=== PATIENT | female | born 1990 | race Hispanic/Latino ===

== ENCOUNTER 2017-11-26 20:14 | Inpatient (IN) | payer BC ==
[2017-11-26] MEDS ORDERED: Sodium Chloride 0.9% 1,000 ML IV STA (20:48)
[2017-11-26] MEDS ORDERED: Iohexol 240 (50 ml) PO ONE (20:48)
--- NOTE | 2017-11-26 20:51 | ED PDOC ---
HPI: Abdomen Time Seen by Provider: 11/26/17 20:34 Chief Complaint (Nursing): Abdominal Pain Chief Complaint (Provider): abdominal pain History Per: Patient History/Exam Limitations: no limitations Onset/Duration Of Symptoms: Hrs (8) Current Symptoms Are (Timing): Still Present Location Of Pain/Discomfort: Periumbilical, Suprapubic Associated Symptoms: Nausea Exacerbating Factors: Movement Alleviating Factors: Rest, Leaning Forward Additional Complaint(s): 27 y/o female presents for evaluation of abdominal pain x 8 hours. Pain worsened by movement, improved with rest and leaning forward. Associated nausea , 2 episodes of diarrhea. Denies fever, vomiting, chest pain, shortness of breath, palpitations, urinary symptoms, recent travel, sick contacts Patient currently on menses but states not consistent with previous menstrual cramps Past Medical History Reviewed: Historical Data, Nursing Documentation, Vital Signs Vital Signs: Last Vital Signs Temp 98.5 F 11/26/17 20:25 Pulse 82 11/26/17 20:25 Resp 16 11/26/17 20:25 BP 135/93 H 11/26/17 20:25 Pulse Ox 99 11/27/17 01:22 - Medical History PMH: No Chronic Diseases - Surgical History Surgical History: No Surg Hx - Family History Family History: States: No Known Family Hx - Allergies Allergies/Adverse Reactions: Allergies Allergy/AdvReac Type Severity Reaction Status Date / Time Sulfa (Sulfonamide Allergy URTICARIA Verified 11/26/17 20:30 Antibiotics) Review of Systems ROS Statement: Except As Marked, All Systems Reviewed And Found Negative Gastrointestinal: Positive for: Nausea, Abdominal Pain, Diarrhea Physical Exam - Reviewed Nursing Documentation Reviewed: Yes Vital Signs Reviewed: Yes - Physical Exam Appears: Positive for: Well, Non-toxic, No Acute Distress Head Exam: Positive for: ATRAUMATIC, NORMAL INSPECTION, NORMOCEPHALIC Skin: Positive for: Normal Color Eye Exam: Positive for: Normal appearance ENT: Positive for: Normal ENT Inspection Cardiovascular/Chest: Positive for: Regular Rate, Rhythm Respiratory: Positive for: Normal Breath Sounds Gastrointestinal/Abdominal: Positive for: Bowel Sounds, Soft, Tenderness ( periumbilical) Back: Positive for: Normal Inspection Extremity: Positive for: Normal ROM Neurologic/Psych: Positive for: Alert, Oriented (x3) - Laboratory Results Result Diagrams: 11/26/17 21:47 11/26/17 21:47 - ECG O2 Sat by Pulse Oximetry: 99 - Progress ED Course And Treament: labs, urine, CT abd/pelvis, IV fluids, IV toradol EXAM: CT Abdomen and Pelvis With Intravenous Contrast EXAM DATE/TIME: 11/26/2017 8:48 PM CLINICAL HISTORY: 27 years old, female; Pain; Abdominal pain; Periumbilical; Additional info: Periumbilical pain TECHNIQUE: Axial computed tomography images of the abdomen and pelvis with intravenous contrast. All CT scans at this facility use at least one of these dose optimization techniques: automated exposure control; mA and/or kV adjustment per patient size (includes targeted exams where dose is matched to clinical indication); or iterative reconstruction. Coronal and sagittal reformatted images were created and reviewed. CONTRAST: 90 ml of [id number] administered intravenously. COMPARISON: No relevant prior studies available. FINDINGS: Lower thorax: No acute findings. ABDOMEN: Liver: Normal. No mass. Gallbladder and bile ducts: Normal. No calcified stones. No ductal dilation. Pancreas: Normal. No ductal dilation. Spleen: Normal. No splenomegaly. Adrenals: Normal. No mass. Kidneys and ureters: Normal. No hydronephrosis. Stomach and bowel: Normal. No obstruction. No mucosal thickening. Appendix: Distal nonfilling of the appendix with fluid noted in the lumen and mild mucosal enhancement. There is minimal surrounding inflammation appendix measures up to 7 mm PELVIS: Bladder: Unremarkable as visualized. Reproductive: Complex cystic structure in the right ovary measuring up to 3.6 cm ABDOMEN and PELVIS: Intraperitoneal space: Minimal cul-de-sac fluid No free air. No significant fluid collection. Bones/joints: No acute fracture. No dislocation. Soft tissues: Unremarkable. Vasculature: Normal. No abdominal aortic aneurysm. Lymph nodes: Normal. No enlarged lymph nodes. IMPRESSION: Acute appendicitis as described. No gross perforation or abscess Complex cystic structure in the right ovary which may be further characterized with pelvic ultrasound IV zosyn dose ordered Dr. Duffy discussed case with Dr. Wright, HOspitalist on-call, for admission Dr. Duffy discussed case with Dr. Hannah, surgical territory manager on-call for consult Disposition - Clinical Impression Clinical Impression: Acute appendicitis, Right ovarian cyst - Disposition Disposition Time: 01:31 Condition: FAIR
[2017-11-26 21:55] LABS: BASO # 0.1 K/uL (0.0-0.2); BASO % 0.3 % (0.0-2.0); EOS # 0.1 K/uL (0.0-0.7); EOS % 0.4 % (0.0-4.0); HEMOGLOBIN 13.8 g/dL (12.0-16.0); LYMPH # 1.9 K/uL (1.0-4.3); LYMPH % 12.3 % (20.0-40.0); MEAN CELL VOLUME 93.1 fl (81.0-99.0); MEAN CORPUSCULAR HEMOGLOBIN 30.8 pg (27.0-31.0); MEAN CORPUSCULAR HGB CONC 33.1 g/dL (33.0-37.0); MEAN PLATELET VOLUME 8.1 fl (7.2-11.7); MONO # 0.8 K/uL (0.0-0.8); MONO % 5.5 % (0.0-10.0); NEUT # 12.3 K/uL (1.8-7.0); NEUT % 81.5 % (50.0-75.0); RBC 4.48 Mil/uL (3.80-5.20); RED CELL DISTRIBUTION WIDTH 13.6 % (11.5-14.5); WHITE BLOOD COUNT 15.1 K/uL (4.8-10.8)
[2017-11-26] MEDS ORDERED: Iohexol 240 (50 ml) ONE (21:59)
[2017-11-26 22:03] LABS: SQUAMOUS EPITHIAL 1 /hpf (0-5); URINE BILIRUBIN NEGATIVE (NEGATIVE); URINE BLOOD SMALL (NEGATIVE); URINE CLARITY CLEAR (Clear); URINE COLOR STRAW (YELLOW); URINE GLUCOSE (UA) NEG (Normal); URINE LEUKOCYTE ESTERASE NEG Leu/uL (Negative); URINE PROTEIN NEGATIVE (NEGATIVE); URINE UROBILINOGEN 0.2-1.0 mg/dL (0.2-1.0)
[2017-11-26 22:07] LABS: ALB/GLOB RATIO 1.5 (1.0-2.1); ALBUMIN 4.8 g/dL (3.5-5.0); ALT/SGPT 21 U/L (9-52); AST/SGOT 25 U/L (14-36); BLOOD UREA NITROGEN 10 mg/dl (7-17); CALCIUM 9.5 mg/dL (8.4-10.2); GFR NON-AFRICAN AMERICAN > 60; LIPASE 67 U/L (23-300)
[2017-11-27] MEDS ORDERED: Sodium Chloride 0.9% 50 ML IV ONE (00:48)
[2017-11-27] MEDS ORDERED: Iohexol 300 100 ML IJ ONE (00:48)
[2017-11-27] MEDS ORDERED: Piperacillin/Tazobact 3.375 GM in Sodium Chloride 0.9% 100 ML IV ONE (01:15)
[2017-11-27] MEDS ORDERED: Piperacillin/Tazobact 3.375 gm Inj IVPB ONE (01:22)
[2017-11-27 02:11] LABS: PROTHROMBIN TIME 11.1 Seconds (9.8-13.1)
[2017-11-27 02:13] LABS: PARTIAL THROMBOPLASTIN TIME 32.1 Seconds (25.6-37.1)
--- NOTE | 2017-11-27 02:27 | CP.PCM.CON ---
History of Present Illness - History of Present Illness History of Present Illness: Surgery Consult: Dr. Lozoya Pt is a 27F with no past medical or surgical hx who presented to [facility] with complaints of abdominal pain that started earlier today. Pt states the pain is located in her infraumbilical/suprapubic area and started around 12 in the afternoon. She states the pain has remained in that area without any radiation. She thought the pain was related to her period so she took some Midol which did not help. When the pain did not improve she decided to come to the hospital. She admits to having associated nausea but no vomiting. She denies fevers but admits to some chills at home. Also admits to loose BMs this morning. In the ER, pt had a CT abdomen/pelvis which shows mildly dilated appendix with some inflammation. Complex cyst in the R ovary also noted. Surgery called to evaluate for appendicitis. Currently, pt is resting comfortably. States her pain remains in the same spot. She denies any other complaints at this time. She admits to starting her period on Sunday. Denies F/C, nausea/vomiting, chest pain or SOB. PMHx: denies PSHx: denies SocialHx: denies smoking/drugs, social EtOH ALL: Sulfa drugs Review of Systems - Review of Systems All systems: reviewed and no additional remarkable complaints except (as per HPI ) Past Patient History - Past Social History Smoking Status: Never Smoked Alcohol: Social Drugs: Denies Meds Allergies/Adverse Reactions: Allergies Allergy/AdvReac Type Severity Reaction Status Date / Time Sulfa (Sulfonamide Allergy URTICARIA Verified 11/26/17 20:30 Antibiotics) - Medications Medications: Current Medications Lactated Ringer's (Lactated Ringer's 500ml) 500 mls @ 100 mls/hr IV .Q5H [facility] Stop: 11/29/17 02:31 Morphine Sulfate (Morphine) 2 mg IVP Q4 PRN PRN Reason: Pain, moderate (4-7) Ondansetron HCl (Zofran Inj) 4 mg IVP Q4 PRN PRN Reason: Nausea/Vomiting Physical Exam - Constitutional Appears: Well, No Acute Distress - Head Exam Head Exam: ATRAUMATIC, NORMOCEPHALIC - Eye Exam Eye Exam: Normal appearance - ENT Exam ENT Exam: Mucous Membranes Moist - Respiratory Exam Respiratory Exam: NORMAL BREATHING PATTERN - Cardiovascular Exam Cardiovascular Exam: RRR - GI/Abdominal Exam GI & Abdominal Exam: Soft, Tenderness (to deep palpation in the suprapubic/ infraumbilical region). absent: Distended, Guarding, Rebound - Neurological Exam Neurological exam: Alert, Oriented x3 - Skin Skin Exam: Dry, Warm Results - Vital Signs Recent Vital Signs: Last Vital Signs Temp 98.5 F 11/26/17 20:25 Pulse 82 11/26/17 20:25 Resp 16 11/26/17 20:25 BP 135/93 H 11/26/17 20:25 Pulse Ox 99 11/27/17 01:32 - Labs Result Diagrams: 11/26/17 21:47 11/26/17 21:47 Labs: Laboratory Results - last 24 hr 11/26/17 11/26/17 11/26/17 21:47 21:47 21:47 WBC 15.1 H RBC 4.48 Hgb 13.8 Hct 41.7 MCV 93.1 MCH 30.8 MCHC 33.1 RDW 13.6 Plt Count 324 MPV 8.1 Neut % (Auto) 81.5 H Lymph % (Auto) 12.3 L [place] % (Auto) 5.5 Eos % (Auto) 0.4 Baso % (Auto) 0.3 Neut # (Auto) 12.3 H Lymph # (Auto) 1.9 [place] # (Auto) 0.8 Eos # (Auto) 0.1 Baso # (Auto) 0.1 PT INR APTT Sodium 141 Potassium 3.7 Chloride 107 Carbon Dioxide 24 Anion Gap 14 BUN 10 Creatinine 0.5 L Est GFR ( Amer) > 60 Est GFR (Non-Af Amer) > 60 Random Glucose 93 Lactic Acid Calcium 9.5 Total Bilirubin 0.5 AST 25 ALT 21 Alkaline Phosphatase 64 Total Protein 7.9 Albumin 4.8 Globulin 3.2 Albumin/Globulin Ratio 1.5 Lipase 67 Urine Color Straw Urine Clarity Clear Urine pH 7.0 Ur Specific [place] 1.015 Urine Protein Negative Urine Glucose (UA) Neg Urine Ketones Trace Urine Blood Small Urine Nitrate Negative Urine Bilirubin Negative Urine Urobilinogen 0.2-1.0 Ur Leukocyte Esterase Neg Urine RBC (Auto) 1 Ur Squamous Epith Cells 1 11/27/17 11/27/17 01:42 01:42 WBC RBC Hgb Hct MCV MCH MCHC RDW Plt Count MPV Neut % (Auto) Lymph % (Auto) [place] % (Auto) Eos % (Auto) Baso % (Auto) Neut # (Auto) Lymph # (Auto) [place] # (Auto) Eos # (Auto) Baso # (Auto) PT 11.1 INR 1.0 APTT 32.1 Sodium Potassium Chloride Carbon Dioxide Anion Gap BUN Creatinine Est GFR ( Amer) Est GFR (Non-Af Amer) Random Glucose Lactic Acid 0.7 Calcium Total Bilirubin AST ALT Alkaline Phosphatase Total Protein Albumin Globulin Albumin/Globulin Ratio Lipase Urine Color Urine Clarity Urine pH Ur Specific [place] Urine Protein Urine Glucose (UA) Urine Ketones Urine Blood Urine Nitrate Urine Bilirubin Urine Urobilinogen Ur Leukocyte Esterase Urine RBC (Auto) Ur Squamous Epith Cells - Imaging and Cardiology CT scan - abdomen Status: Image reviewed by me, Report reviewed by me Assessment & Plan - Assessment and Plan (Free Text) Assessment: 27F with abdominal pain 2/2 acute appendicitis vs ovarian cyst Plan: - keep NPO with IVF - pain management - recommend transvaginal US - will re-eval in the morning for possible operative intervention - d/w Dr. Darell Hannah
[2017-11-27] MEDS ORDERED: Lactated Ringer's 500 ML IV SCH (02:30)
--- NOTE | 2017-11-27 02:37 | CP.PCM.HP ---
<Violeta Mcnair - Last Filed: 11/27/17 02:53> History of Present Illness - History of Present Illness History of Present Illness: 27 yr old F presents to ED with complaint of diffuse abdominal pain which started at 12pm yesterday after she drank coffee. Denies any significant PMHx. Associated symptoms are persistent nausea and 2 episodes of nonbloody diarrhea. Denies vomiting, fever, chills weakness, dizziness, dysuria or hematuria. Pain is 5/10, exacerbated by moving or touching abdomen, alleviated by sitting forward and staying still. Denies similar symptom in past. PMD: none ObGynHx: ; LMP 11/24/17 PMHx: none SurgHx: denies FMHx: mother and father are 55yrs old-healthy SocHx: denies tobacco, denies drugs, reports occasional Etoh use (last had a drink 2 days ago) Medications: none Allergies: sulfa drugs-hives Code Status: full code Emergency contact: Ann Menchaca (life partner) [phone] ER course: 135/93 mmHg, HR 82, Temp 98.5F , Resp rate 16, SpO2 99% on room air -CBC: WBC 15.1, neutrophil % 81.5, rest wnl -CMP: wnl ; lipase 67, lactic acid 0.7, PT/INR wnl, PTT wnl -UA: trace ketones; rest wnl -Abd/Pelvis CT: findings of acute appendicitis, no gross perforation or abscess -ED treatment: NS 1L IV bolus, Zosyn 3.375 gm IV once, Toradol 15mg IV once -Surgery consult: Dr. Zarate Present on Admission - Present on Admission Any Indicators Present on Admission: No History of DVT/PE: No History of Uncontrolled Diabetes: No Urinary Catheter: No Decubitus Ulcer Present: No History Surgical Site Infection Following: None Review of Systems - Constitutional Constitutional: absent: Anorexia, Chills - EENT Eyes: absent: Change in Vision Nose/Mouth/Throat: absent: Nasal Congestion, Sore Throat - Cardiovascular Cardiovascular: absent: Chest Pain, Dyspnea - Respiratory Respiratory: absent: Cough, Dyspnea - Gastrointestinal Gastrointestinal: Abdominal Pain, Diarrhea, Nausea. absent: Bloating, Vomiting - Genitourinary Genitourinary: absent: Dysuria, Hematuria - Musculoskeletal Musculoskeletal: absent: Arthralgias, Numbness, Tingling - Neurological Neurological: absent: Confusion, Dizziness, Weakness - Psychiatric Psychiatric: absent: Anxiety, Suicidal Ideation - Endocrine Endocrine: absent: Polydipsia, Polyphagia, Polyuria - Hematologic/Lymphatic Hematologic: absent: Easy Bleeding, Easy Bruising Past Patient History - Past Social History Smoking Status: Never Smoked Alcohol: Social Drugs: Denies Meds Allergies/Adverse Reactions: Allergies Allergy/AdvReac Type Severity Reaction Status Date / Time Sulfa (Sulfonamide Allergy URTICARIA Verified 11/26/17 20:30 Antibiotics) Physical Exam - Constitutional Appears: No Acute Distress - Head Exam Head Exam: ATRAUMATIC, NORMOCEPHALIC - Eye Exam Eye Exam: EOMI, PERRL - ENT Exam ENT Exam: Mucous Membranes Moist - Neck Exam Neck exam: Positive for: Full Rom. Negative for: Lymphadenopathy - Respiratory Exam Respiratory Exam: Clear to Auscultation Bilateral, NORMAL BREATHING PATTERN. absent: Rales, Rhonchi, Wheezes - Cardiovascular Exam Cardiovascular Exam: REGULAR RHYTHM, +S1, +S2 - GI/Abdominal Exam GI & Abdominal Exam: Hyperactive Bowel Sounds, Soft, Tenderness (moderate tenderness to palpation in bilateral lower quadrants). absent: Distended, Guarding, Rebound - Extremities Exam Extremities exam: Positive for: full ROM, pedal pulses present. Negative for: pedal edema - Back Exam Back exam: absent: CVA tenderness (L), CVA tenderness (R) - Neurological Exam Neurological exam: Alert, CN II-XII Intact, Oriented x3 - Psychiatric Exam Psychiatric exam: Normal Affect, Normal Mood - Skin Skin Exam: Dry, Normal Color, Warm Results - Vital Signs Recent Vital Signs: Last Vital Signs Temp 98.5 F 11/26/17 20:25 Pulse 82 11/26/17 20:25 Resp 16 11/26/17 20:25 BP 135/93 H 11/26/17 20:25 Pulse Ox 99 11/27/17 01:32 - Labs Result Diagrams: 11/26/17 21:47 11/26/17 21:47 Labs: Laboratory Results - last 24 hr 11/26/17 11/26/17 11/26/17 21:47 21:47 21:47 WBC 15.1 H RBC 4.48 Hgb 13.8 Hct 41.7 MCV 93.1 MCH 30.8 MCHC 33.1 RDW 13.6 Plt Count 324 MPV 8.1 Neut % (Auto) 81.5 H Lymph % (Auto) 12.3 L [place] % (Auto) 5.5 Eos % (Auto) 0.4 Baso % (Auto) 0.3 Neut # (Auto) 12.3 H Lymph # (Auto) 1.9 Bowie # (Auto) 0.8 Eos # (Auto) 0.1 Baso # (Auto) 0.1 PT INR APTT Sodium 141 Potassium 3.7 Chloride 107 Carbon Dioxide 24 Anion Gap 14 BUN 10 Creatinine 0.5 L Est GFR ( Amer) > 60 Est GFR (Non-Af Amer) > 60 Random Glucose 93 Lactic Acid Calcium 9.5 Total Bilirubin 0.5 AST 25 ALT 21 Alkaline Phosphatase 64 Total Protein 7.9 Albumin 4.8 Globulin 3.2 Albumin/Globulin Ratio 1.5 Lipase 67 Urine Color Straw Urine Clarity Clear Urine pH 7.0 Ur Specific [place] 1.015 Urine Protein Negative Urine Glucose (UA) Neg Urine Ketones Trace Urine Blood Small Urine Nitrate Negative Urine Bilirubin Negative Urine Urobilinogen 0.2-1.0 Ur Leukocyte Esterase Neg Urine RBC (Auto) 1 Ur Squamous Epith Cells 1 11/27/17 11/27/17 01:42 01:42 WBC RBC Hgb Hct MCV MCH MCHC RDW Plt Count MPV Neut % (Auto) Lymph % (Auto) [place] % (Auto) Eos % (Auto) Baso % (Auto) Neut # (Auto) Lymph # (Auto) [place] # (Auto) Eos # (Auto) Baso # (Auto) PT 11.1 INR 1.0 APTT 32.1 Sodium Potassium Chloride Carbon Dioxide Anion Gap BUN Creatinine Est GFR ( Amer) Est GFR (Non-Af Amer) Random Glucose Lactic Acid 0.7 Calcium Total Bilirubin AST ALT Alkaline Phosphatase Total Protein Albumin Globulin Albumin/Globulin Ratio Lipase Urine Color Urine Clarity Urine pH Ur Specific [place] Urine Protein Urine Glucose (UA) Urine Ketones Urine Blood Urine Nitrate Urine Bilirubin Urine Urobilinogen Ur Leukocyte Esterase Urine RBC (Auto) Ur Squamous Epith Cells Assessment & Plan - Assessment and Plan (Free Text) Assessment: 27 yr old F admitted for acute appendicitis with no significant PMHx. Acute Appendicitis -Abd/Pelvis CT: findings of acute appendicitis, no gross perforation or abscess -admit to med surg -NPO, LR IV fluids, Zofran 4mg IV Q4 PRN nausea/vomiting; Zosyn 3.375 gm IV once in ER -pain management: per surgery-Morphine 2mg IV Q4 PRN -Surgery consult: Dr. Zarate -f/u CBC, BMP DVT prophylaxis -Lovenox 30 mg SC QD - Date & Time Date: 11/27/17 Time: 02:36 <Mikie Wright - Last Filed: 11/27/17 05:25> Results - Vital Signs Recent Vital Signs: Last Vital Signs Temp 98.4 F 11/27/17 03:04 Pulse 65 11/27/17 03:28 Resp 18 11/27/17 03:28 BP 128/76 11/27/17 03:04 Pulse Ox 100 11/27/17 03:28 - Labs Result Diagrams: 11/26/17 21:47 11/26/17 21:47 Labs: Laboratory Results - last 24 hr 11/26/17 11/26/17 11/26/17 21:47 21:47 21:47 WBC 15.1 H RBC 4.48 Hgb 13.8 Hct 41.7 MCV 93.1 MCH 30.8 MCHC 33.1 RDW 13.6 Plt Count 324 MPV 8.1 Neut % (Auto) 81.5 H Lymph % (Auto) 12.3 L [place] % (Auto) 5.5 Eos % (Auto) 0.4 Baso % (Auto) 0.3 Neut # (Auto) 12.3 H Lymph # (Auto) 1.9 Bowie # (Auto) 0.8 Eos # (Auto) 0.1 Baso # (Auto) 0.1 PT INR APTT Sodium 141 Potassium 3.7 Chloride 107 Carbon Dioxide 24 Anion Gap 14 BUN 10 Creatinine 0.5 L Est GFR ( Amer) > 60 Est GFR (Non-Af Amer) > 60 Random Glucose 93 Lactic Acid Calcium 9.5 Total Bilirubin 0.5 AST 25 ALT 21 Alkaline Phosphatase 64 Total Protein 7.9 Albumin 4.8 Globulin 3.2 Albumin/Globulin Ratio 1.5 Lipase 67 Urine Color Straw Urine Clarity Clear Urine pH 7.0 Ur Specific [place] 1.015 Urine Protein Negative Urine Glucose (UA) Neg Urine Ketones Trace Urine Blood Small Urine Nitrate Negative Urine Bilirubin Negative Urine Urobilinogen 0.2-1.0 Ur Leukocyte Esterase Neg Urine RBC (Auto) 1 Ur Squamous Epith Cells 1 11/27/17 11/27/17 01:42 01:42 WBC RBC Hgb Hct MCV MCH MCHC RDW Plt Count MPV Neut % (Auto) Lymph % (Auto) [place]ie % (Auto) Eos % (Auto) Baso % (Auto) Neut # (Auto) Lymph # (Auto) [place] # (Auto) Eos # (Auto) Baso # (Auto) PT 11.1 INR 1.0 APTT 32.1 Sodium Potassium Chloride Carbon Dioxide Anion Gap BUN Creatinine Est GFR ( Amer) Est GFR (Non-Af Amer) Random Glucose Lactic Acid 0.7 Calcium Total Bilirubin AST ALT Alkaline Phosphatase Total Protein Albumin Globulin Albumin/Globulin Ratio Lipase Urine Color Urine Clarity Urine pH Ur Specific [place] Urine Protein Urine Glucose (UA) Urine Ketones Urine Blood Urine Nitrate Urine Bilirubin Urine Urobilinogen Ur Leukocyte Esterase Urine RBC (Auto) Ur Squamous Epith Cells Attending/Attestation - Attestation I have personally seen and examined this patient.: Yes I have fully participated in the care of the patient.: Yes I have reviewed all pertinent clinical information: Yes Notes (Text): I saw and examined and discussed this patient with Dr Mcnair. I agree with the Assessment and plan outlined. this is a 27 years old female with no significant past medical hx , comes wiht8 hours of abdominal pain not relieved with home medication. A&P: #. Acute Appendicitis as evident on Catscan of Abdomen/Pelvis - Consult Dr Zarate surgeon - NPO - NG tube inserted by the vice president of consulting services - Pain management - IV Fluids - Zosyn antibiotics #. DVT prophylaxis with Lovenox to begin on the day after surgery #. Code Status: full This patient with no cardiac nor pulmonary risk factors is cleared for surgery with general anesthesia, with mild cardiac risk. Mikie Wright MD
[2017-11-27] MEDS ORDERED: Lactated Ringer's 1,000 ML IV SCH ×2 (04:00→18:00)
[2017-11-27 07:12] LABS: HEMOGLOBIN 11.8 g/dL (12.0-16.0); MEAN CELL VOLUME 92.5 fl (81.0-99.0); MEAN CORPUSCULAR HEMOGLOBIN 30.7 pg (27.0-31.0); MEAN CORPUSCULAR HGB CONC 33.2 g/dL (33.0-37.0); RBC 3.85 Mil/uL (3.80-5.20); RED CELL DISTRIBUTION WIDTH 13.6 % (11.5-14.5); WHITE BLOOD COUNT 6.9 K/uL (4.8-10.8)
[2017-11-27 07:31] LABS: BLOOD UREA NITROGEN 6 mg/dl (7-17); CALCIUM 8.8 mg/dL (8.4-10.2); GFR NON-AFRICAN AMERICAN > 60
[2017-11-27] MEDS ORDERED: Enoxaparin 40 mg Syringe SC SCH (09:00)
[2017-11-27] MEDS: Piperacillin/Tazobact 3.375 GM in Sodium Chloride 0.9% 100 ML IVPB SCH ×3 (09:50→21:52)
--- NOTE | 2017-11-27 10:06 | US ---
Date of service: 11/27/2017 HISTORY: ovarian cyst COMPARISON: None available. TECHNIQUE: Transvaginal sonographic evaluation of the pelvis performed. FINDINGS: UTERUS: Measures 6.5 x 3.4 x 5.4 cm. Uterus is anteverted and exhibits normal size and appearance and appearance. No fibroid or other mass lesion seen. ENDOMETRIUM: Measures 5.0 mm in diameter. Trace amount of fluid is present within the endometrial canal CERVIX: No cervical abnormality identified. RIGHT OVARY: Measures 4.2 x 4.0 x 3.8 cm. No solid mass. Normal flow. Complex cystic structure measuring approximately 3.4 x 2.9 x 3.0 cm. This structure it appears to exhibit a fluid level with more echogenic component layering more posteriorly. This lesion is of uncertain etiology though could represent an evolving hemorrhagic cyst however other possibilities such is an endometrioma. Abscess/TOA or other ovarian tumor not excluded. LEFT OVARY: Measures 3.7 x 1.7 x 3.4 cm. No solid mass. Several echogenic foci are present possibly representing tiny calcifications .Normal flow. FREE FLUID: No significant free fluid noted. OTHER FINDINGS: None. IMPRESSION: Complex cystic structure measuring approximately 3.4 x 2.9 x 3.0 cm. This structure it appears to exhibit a fluid level with more echogenic component layering more posteriorly. This lesion is of uncertain etiology though could represent an evolving hemorrhagic cyst however other possibilities such is an endometrioma. Abscess/TOA or other ovarian tumor not excluded. Recommend repeat ultrasound during the next menstrual cycle shortly following cessation of menses to assess for resolution.
--- NOTE | 2017-11-27 11:30 | CT ---
PROCEDURE: CT Abdomen and Pelvis with oral and IV contrast. HISTORY: periumbilical pain COMPARISON: None available TECHNIQUE: Contiguous axial images of the abdomen and pelvis. Oral and IV contrast was administered. Coronal and Sagittal reformats generated and reviewed. Contrast dose: 90 mL Omnipaque 300 Radiation dose: Total exam DLP = 331.88 mGy-cm. This CT exam was performed using one or more of the following dose reduction techniques: Automated exposure control, adjustment of the mA and/or kV according to patient size, and/or use of iterative reconstruction technique. FINDINGS: LOWER THORAX: No visible consolidation, pleural effusion, or pneumothorax. 5 mm calcification at the right lung base. LIVER: Unremarkable. GALLBLADDER AND BILE DUCTS: Unremarkable. PANCREAS: Unremarkable. SPLEEN: Unremarkable. ADRENALS: Unremarkable. KIDNEYS AND URETERS: The kidneys enhance symmetrically. No hydronephrosis or obstructing renal calculus. BLADDER: The urinary bladder appears unremarkable. REPRODUCTIVE: Uterus is present. Complex cystic structure in the right adnexa measuring up to 3.6 cm. APPENDIX: The appendix measures up to approximately 7 mm and contains fluid within the distal lumen. There is evidence of mild mucosal enhancement and lack of oral contrast at the distal tip. BOWEL: The stomach is nondistended. The bowel loops appear within normal limits of caliber without evidence of intestinal obstruction. PERITONEUM: No significant free fluid. No definite free air. LYMPH NODES: No bulky lymphadenopathy identified. VASCULATURE: No aortic aneurysm. BONES: No acute osseous abnormality is detected. OTHER FINDINGS: None. IMPRESSION: Findings as above appear consistent with acute appendicitis. Correlate clinically. Complex cystic structure in the region of the right adnexa; recommend further evaluation with pelvic ultrasound. Preliminary impression was provided by virtual radiologic.
--- NOTE | 2017-11-27 12:47 | CP.PCM.CON ---
<Giuliano Queen - Last Filed: 11/27/17 17:08> History of Present Illness - History of Present Illness History of Present Illness: 27 yr old female with no significant PMHx present to ED with abdominal pain that started at about 12 pm yesterday. Abdominal pain is diffuse, continuous sharp with cramping which progressively worsened over next 6-7 hours which prompted patient to seek medical attention. Patient also reports associated nausea, bloating and 2 episodes of nonbloody diarrhea yesterday. Patient also started Ketodiet for last 1 week. LMP 11/24/17. She reports her her menstrual period is vp of customer experience strategy compare to previous cycles. Denies any fever, chills , vomiting, headache, dizziness, CP, dysuria or abnormal vaginal bleed or discharge. PMHx: None PSHx: Denies FMHx: Denies Social Hx: 2 Beer/wine x 3 times a week, Denies Tobacco or illicit drug use Sexual Hx: monogamous relationship with 1 female partner, Denies Medications: none Allergies: sulfa drugs-hives Emergency contact: Ann Menchaca (life partner) [phone] Review of Systems - Cardiovascular Cardiovascular: absent: Chest Pain - Respiratory Respiratory: absent: Dyspnea on Exertion - Gastrointestinal Gastrointestinal: Abdominal Pain, Cramping, Diarrhea, Nausea - Reproductive: Female Reproductive:Female: Currently Menstual, Menses 1-7 Days, Light Menses. absent : Abnormal Vaginal Bleeding, Pelvic Pain, Vaginal Discharge Past Patient History - Past Medical History & Family History Past Medical History?: Yes - Past Social History Smoking Status: Never Smoked Alcohol: Other - CARDIAC Hx Cardiac Disorders: No - PULMONARY Hx Respiratory Disorders: No - NEUROLOGICAL Hx Neurological Disorder: No - HEENT Hx HEENT Problems: No - RENAL Hx Chronic Kidney Disease: No - ENDOCRINE/METABOLIC Hx Endocrine Disorders: No - HEMATOLOGICAL/ONCOLOGICAL Hx Blood Disorders: No - INTEGUMENTARY Hx Dermatological Problems: No - MUSCULOSKELETAL/RHEUMATOLOGICAL Hx Musculoskeletal Disorders: No Hx Falls: No - GASTROINTESTINAL Hx Gastrointestinal Disorders: No - GENITOURINARY/GYNECOLOGICAL Hx Genitourinary Disorders: No - PSYCHIATRIC Hx Psychophysiologic Disorder: No Hx Substance Use: No - SURGICAL HISTORY Hx Surgeries: No - ANESTHESIA Hx Anesthesia: No Meds Allergies/Adverse Reactions: Allergies Allergy/AdvReac Type Severity Reaction Status Date / Time Sulfa (Sulfonamide Allergy URTICARIA Verified 11/26/17 20:30 Antibiotics) - Medications Medications: Current Medications Enoxaparin Sodium (Lovenox) 40 mg SC DAILY ROBB PRN Reason: Protocol Lactated Ringer's (Lactated Ringer's) 1,000 mls @ 100 mls/hr IV .Q10H ROBB Stop: 11/29/17 04:01 Last Admin: 11/27/17 05:00 Dose: Not Given Piperacillin Sod/Tazobactam (Sod 3.375 gm/ Sodium Chloride) 100 mls @ 100 mls/ hr IVPB Q6 ROBB PRN Reason: Protocol Last Admin: 11/27/17 09:50 Dose: 100 mls/hr Ketorolac Tromethamine (Toradol) 15 mg IVP Q6 PRN PRN Reason: Pain, moderate (4-7) Last Admin: 11/27/17 10:58 Dose: 15 mg Ondansetron HCl (Zofran Inj) 4 mg IVP Q4 PRN PRN Reason: Nausea/Vomiting Physical Exam - Constitutional Appears: Well, Non-toxic, No Acute Distress - Head Exam Head Exam: ATRAUMATIC, NORMAL INSPECTION, NORMOCEPHALIC - Eye Exam Eye Exam: PERRL - Respiratory Exam Respiratory Exam: Clear to Auscultation Bilateral - Cardiovascular Exam Cardiovascular Exam: REGULAR RHYTHM, +S1, +S2 - GI/Abdominal Exam GI & Abdominal Exam: Normal Bowel Sounds, Soft, Tenderness. absent: Distended Additional comments: McBurney point tenderness positive, No rebound tenderness, Guarding+ - Expanded Exam Expanded Female exam: Negative for: foreign body, vaginal laceration, vulvar erythema Speculum exam: cervical OS closed - Neurological Exam Neurological exam: Alert, Oriented x3 - Additional Findings Additional findings: SVE: No cervical motion tenderness, No active vaginal bleeding, Cervix closed, No vaginal/vulval erythema. Blood clots seen consistent with menstrual periods Results - Vital Signs Recent Vital Signs: Last Vital Signs Temp 98.8 F 11/27/17 07:57 Pulse 72 11/27/17 07:57 Resp 18 11/27/17 07:57 BP 118/64 11/27/17 07:57 Pulse Ox 97 11/27/17 07:57 - Labs Result Diagrams: 11/27/17 06:35 11/27/17 06:35 Labs: Laboratory Results - last 24 hr 11/26/17 11/26/17 11/26/17 21:47 21:47 21:47 WBC 15.1 H RBC 4.48 Hgb 13.8 Hct 41.7 MCV 93.1 MCH 30.8 MCHC 33.1 RDW 13.6 Plt Count 324 MPV 8.1 Neut % (Auto) 81.5 H Lymph % (Auto) 12.3 L [place] % (Auto) 5.5 Eos % (Auto) 0.4 Baso % (Auto) 0.3 Neut # (Auto) 12.3 H Lymph # (Auto) 1.9 [place] # (Auto) 0.8 Eos # (Auto) 0.1 Baso # (Auto) 0.1 PT INR APTT Sodium 141 Potassium 3.7 Chloride 107 Carbon Dioxide 24 Anion Gap 14 BUN 10 Creatinine 0.5 L Est GFR ( Amer) > 60 Est GFR (Non-Af Amer) > 60 Random Glucose 93 Lactic Acid Calcium 9.5 Total Bilirubin 0.5 AST 25 ALT 21 Alkaline Phosphatase 64 Total Protein 7.9 Albumin 4.8 Globulin 3.2 Albumin/Globulin Ratio 1.5 Lipase 67 Urine Color Straw Urine Clarity Clear Urine pH 7.0 Ur Specific [place] 1.015 Urine Protein Negative Urine Glucose (UA) Neg Urine Ketones Trace Urine Blood Small Urine Nitrate Negative Urine Bilirubin Negative Urine Urobilinogen 0.2-1.0 Ur Leukocyte Esterase Neg Urine RBC (Auto) 1 Ur Squamous Epith Cells 1 11/27/17 11/27/17 11/27/17 01:42 01:42 06:35 WBC 6.9 D RBC 3.85 Hgb 11.8 L D Hct 35.6 MCV 92.5 MCH 30.7 MCHC 33.2 RDW 13.6 Plt Count 276 MPV Neut % (Auto) Lymph % (Auto) [place] % (Auto) Eos % (Auto) Baso % (Auto) Neut # (Auto) Lymph # (Auto) [place] # (Auto) Eos # (Auto) Baso # (Auto) PT 11.1 INR 1.0 APTT 32.1 Sodium Potassium Chloride Carbon Dioxide Anion Gap BUN Creatinine Est GFR ( Amer) Est GFR (Non-Af Amer) Random Glucose Lactic Acid 0.7 Calcium Total Bilirubin AST ALT Alkaline Phosphatase Total Protein Albumin Globulin Albumin/Globulin Ratio Lipase Urine Color Urine Clarity Urine pH Ur Specific [place] Urine Protein Urine Glucose (UA) Urine Ketones Urine Blood Urine Nitrate Urine Bilirubin Urine Urobilinogen Ur Leukocyte Esterase Urine RBC (Auto) Ur Squamous Epith Cells 11/27/17 06:35 WBC RBC Hgb Hct MCV MCH MCHC RDW Plt Count MPV Neut % (Auto) Lymph % (Auto) [place] % (Auto) Eos % (Auto) Baso % (Auto) Neut # (Auto) Lymph # (Auto) [place] # (Auto) Eos # (Auto) Baso # (Auto) PT INR APTT Sodium 139 Potassium 3.7 Chloride 109 H Carbon Dioxide 23 Anion Gap 11 BUN 6 L Creatinine 0.6 L Est GFR ( Amer) > 60 Est GFR (Non-Af Amer) > 60 Random Glucose 79 Lactic Acid Calcium 8.8 Total Bilirubin AST ALT Alkaline Phosphatase Total Protein Albumin Globulin Albumin/Globulin Ratio Lipase Urine Color Urine Clarity Urine pH Ur Specific [place] Urine Protein Urine Glucose (UA) Urine Ketones Urine Blood Urine Nitrate Urine Bilirubin Urine Urobilinogen Ur Leukocyte Esterase Urine RBC (Auto) Ur Squamous Epith Cells Assessment & Plan - Assessment and Plan (Free Text) Assessment: 27 yr old female with no significant PMHx present to ED with abdominal pain x 1 day, nausea and diarrhea. Plan: Ovarian mass - Afebrile - TV US 11/27/17: Complex cystic structure measuring approximately 3.4 x 2.9 x 3.0 cm. This structure it appears to exhibit a fluid level with more echogenic component layering more posteriorly. - Most likely corpus luteum cyst considering patient's menstrual history and physical exam findings - Patient advised to F/U as an outpatient basis with Ob-Behavioral Analyst, Dr. Tatum/ in 6 weeks. - Patient stable from Ob-Behavioral Analyst standpoint. Acute appendicitis - Manage as per Surgery <Rosa Elena Horowitz S - Last Filed: 11/28/17 07:48> History of Present Illness - History of Present Illness History of Present Illness: TINSEL MACHINE OPERATOR attending addendum: Patient seen and examined by me. Agree with above assessment and plan. Patient denies vaginal by vibrator or the devices with vaginal penetration. She denies history of gonorrhea and chlamydia. Meds - Medications Medications: Current Medications Enoxaparin Sodium (Lovenox) 40 mg SC DAILY ROBB PRN Reason: Protocol Piperacillin Sod/Tazobactam (Sod 3.375 gm/ Sodium Chloride) 100 mls @ 100 mls/ hr IVPB Q6 ROBB PRN Reason: Protocol Last Admin: 11/28/17 04:45 Dose: 100 mls/hr Lactated Ringer's (Lactated Ringer's) 1,000 mls @ 105 mls/hr IV .Q9H32M [facility] Last Admin: 11/28/17 03:28 Dose: Not Given Lactated Ringer's (Lactated Ringer's) 1,000 mls @ 100 mls/hr IV .Q10H [facility] Last Admin: 11/28/17 04:43 Dose: Not Given Ketorolac Tromethamine (Toradol) 15 mg IVP Q6 PRN PRN Reason: Pain, moderate (4-7) Last Admin: 11/28/17 02:28 Dose: 15 mg Ondansetron HCl (Zofran Inj) 4 mg IVP Q4 PRN PRN Reason: Nausea/Vomiting Oxycodone/Acetaminophen (Percocet 5/325 Mg Tab) 1 tab PO Q4 PRN PRN Reason: Pain, moderate (4-7) Stop: 11/30/17 18:06 Physical Exam - Respiratory Exam Respiratory Exam: NORMAL BREATHING PATTERN - GI/Abdominal Exam GI & Abdominal Exam: Rebound - Exam Bimanual exam: NORMAL BIMANUAL EXAM. absent: Adenexal Mass (adnexa nontender), Cervical Motion Tendernes, Uterine Enlargement, Uterine Tenderness Results - Vital Signs Recent Vital Signs: Last Vital Signs Temp 98.0 F 11/28/17 03:31 Pulse 85 11/28/17 03:31 Resp 20 11/28/17 03:31 BP 129/76 11/28/17 03:31 Pulse Ox 99 11/28/17 03:31 - Labs Result Diagrams: 11/27/17 06:35 11/27/17 06:35 Assessment & Plan - Assessment and Plan (Free Text) Assessment: I: Corpus Luteum Cyst of normal size Appendiciits P: f/u w/ obgyn- pt advised will need f/u us in 4-6wks to confirm resolution. surg for managment of appendix.
[2017-11-27] MEDS ORDERED: Potassium Chloride 20 MEQ in Dextrose 5%/0.45% NS 1,000 ML IV SCH (13:15)
[2017-11-27] MEDS ORDERED: Lactated Ringer's 1,000 ML IV ONE ×2 (14:46→19:30)
[2017-11-27] MEDS: Lactated Ringer's 1,000 ML IV SCH (15:26)
[2017-11-27] MEDS ORDERED: Midazolam 2 MG/2 ML VIAL ONE (16:11)
[2017-11-27] MEDS ORDERED: Propofol 10 mg/ml Inj (20 ML) ONE (16:11)
[2017-11-27] MEDS ORDERED: Succinylcholine 200 mg/10 ml Inj IV ONE (16:12)
[2017-11-27] MEDS ORDERED: Lidocaine 4% (Laryng-O-Jet) Kit MM ONE (16:12)
[2017-11-27] MEDS ORDERED: Lidocaine 1% 5ml Abboject IV ONE (16:12)
[2017-11-27] MEDS ORDERED: Rocuronium 10 mg/ml (5 ml) ONE (16:13)
[2017-11-27] MEDS ORDERED: Neostigmine 1:1000 (1 mg/ml) Inj ONE (16:14)
[2017-11-27] MEDS ORDERED: Bupivacaine HCl 0.25% PF (30 ml) Inj ONE (17:06)
[2017-11-27] MEDS ORDERED: HYDROmorphone 0.5 mg/0.5 ml ISec IVP PRN (18:00)
[2017-11-27] MEDS ORDERED: Oxycodone/Acetaminophen 5/325 mg Tab PO PRN (18:05)
--- NOTE | 2017-11-27 18:05 | PCM.SURG1 ---
Surgeon's Initial Post Op Note - Surgeon's Notes Surgeon: Dr. Lozoya Event Executive: Anh PGY2 Type of Anesthesia: General Endo Pre-Operative Diagnosis: acute appendicitis, right ovarian cyst Operative Findings: acute appendicitis, right ovarian cyst Post-Operative Diagnosis: acute appendicitis, right ovarian cyst Operation Performed: Laparoscopic appendectomy Specimen/Specimens Removed: Appendix Estimated Blood Loss: EBL {In ML}: 5 Blood Products Given: N/A Drains Used: No Drains Post-Op Condition: Good Date of Surgery/Procedure: 11/27/17 Time of Surgery/Procedure: 18:04
[2017-11-28] MEDS: Lactated Ringer's 1,000 ML IV SCH ×2 (03:28→09:11)
[2017-11-28 03:32] VITALS: RESP 20
[2017-11-28] MEDS: Piperacillin/Tazobact 3.375 GM in Sodium Chloride 0.9% 100 ML IVPB SCH ×2 (04:45→09:09)
[2017-11-28 08:12] VITALS: BP 122/88; PULSE 74; TEMP 98.5; O2SAT 100
[2017-11-28 09:10] LABS: HEMOGLOBIN 11.4 g/dL (12.0-16.0); MEAN CELL VOLUME 92.9 fl (81.0-99.0); MEAN CORPUSCULAR HEMOGLOBIN 30.7 pg (27.0-31.0); MEAN CORPUSCULAR HGB CONC 33.1 g/dL (33.0-37.0); RBC 3.7 Mil/uL (3.80-5.20); RED CELL DISTRIBUTION WIDTH 13.6 % (11.5-14.5); WHITE BLOOD COUNT 8.2 K/uL (4.8-10.8)
[2017-11-28 09:25] LABS: BLOOD UREA NITROGEN 4 mg/dl (7-17); CALCIUM 8.8 mg/dL (8.4-10.2); GFR NON-AFRICAN AMERICAN > 60
--- NOTE | 2017-11-28 09:59 | CP.PCM.DIS ---
<AfshinZaida - Last Filed: 11/28/17 12:18> Provider - Provider Date of Admission: 11/27/17 01:16 Attending physician: Mikie Wright Consults: General surgery: Dr. Lozoya CONFERENCE PRODUCER: Dr. Horowitz Time Spent in preparation of Discharge (in minutes): 30 Diagnosis - Discharge Diagnosis (1) Acute appendicitis Status: Acute Comment: s/p lap appendectomy POD #1. F/U with Dr. Lozoya in 1 week. (2) S/P laparoscopic appendectomy Status: Acute Comment: F/U with Dr. Lozoya in 1 week. (3) Right ovarian cyst Status: Acute Comment: F/U with CONFERENCE PRODUCER as outpatient Hospital Course - Lab Results Lab Results: Micro Results 11/27/17 02:12 Blood Blood Culture - Preliminary NO GROWTH AFTER 24 HOURS 11/27/17 01:42 Blood Blood Culture - Preliminary NO GROWTH AFTER 24 HOURS Most Recent Lab Values WBC 8.2 K/uL (4.8-10.8) 11/28/17 07:30 RBC 3.70 Mil/uL (3.80-5.20) L 11/28/17 07:30 Hgb 11.4 g/dL (12.0-16.0) L 11/28/17 07:30 Hct 34.4 % (34.0-47.0) 11/28/17 07:30 MCV 92.9 fl (81.0-99.0) 11/28/17 07:30 MCH 30.7 pg (27.0-31.0) 11/28/17 07:30 MCHC 33.1 g/dL (33.0-37.0) 11/28/17 07:30 RDW 13.6 % (11.5-14.5) 11/28/17 07:30 Plt Count 262 K/uL (130-400) 11/28/17 07:30 MPV 8.1 fl (7.2-11.7) 11/26/17 21:47 Neut % (Auto) 81.5 % (50.0-75.0) H 11/26/17 21:47 Lymph % (Auto) 12.3 % (20.0-40.0) L 11/26/17 21:47 [place] % (Auto) 5.5 % (0.0-10.0) 11/26/17 21:47 Eos % (Auto) 0.4 % (0.0-4.0) 11/26/17 21:47 Baso % (Auto) 0.3 % (0.0-2.0) 11/26/17 21:47 Neut # (Auto) 12.3 K/uL (1.8-7.0) H 11/26/17 21:47 Lymph # (Auto) 1.9 K/uL (1.0-4.3) 11/26/17 21:47 [place] # (Auto) 0.8 K/uL (0.0-0.8) 11/26/17 21:47 Eos # (Auto) 0.1 K/uL (0.0-0.7) 11/26/17 21:47 Baso # (Auto) 0.1 K/uL (0.0-0.2) 11/26/17 21:47 PT 11.1 Seconds (9.8-13.1) 11/27/17 01:42 INR 1.0 11/27/17 01:42 APTT 32.1 Seconds (25.6-37.1) 11/27/17 01:42 Sodium 135 mmol/l (132-148) 11/28/17 07:30 Potassium 4.1 MMOL/L (3.6-5.0) 11/28/17 07:30 Chloride 106 mmol/L (98-107) 11/28/17 07:30 Carbon Dioxide 21 mmol/L (22-30) L 11/28/17 07:30 Anion Gap 12 (10-20) 11/28/17 07:30 BUN 4 mg/dl (7-17) L 11/28/17 07:30 Creatinine 0.6 mg/dl (0.7-1.2) L 11/28/17 07:30 Est GFR ( Amer) > 60 11/28/17 07:30 Est GFR (Non-Af Amer) > 60 11/28/17 07:30 Random Glucose 78 mg/dL (65-105) 11/28/17 07:30 Lactic Acid 0.7 MMOL/L (0.7-2.1) 11/27/17 01:42 Calcium 8.8 mg/dL (8.4-10.2) 11/28/17 07:30 Total Bilirubin 0.5 mg/dl (0.2-1.3) 11/26/17 21:47 AST 25 U/L (14-36) 11/26/17 21:47 ALT 21 U/L (9-52) 11/26/17 21:47 Alkaline Phosphatase 64 U/L (38-126) 11/26/17 21:47 Total Protein 7.9 G/DL (6.3-8.2) 11/26/17 21:47 Albumin 4.8 g/dL (3.5-5.0) 11/26/17 21:47 Globulin 3.2 gm/dL (2.2-3.9) 11/26/17 21:47 Albumin/Globulin Ratio 1.5 (1.0-2.1) 11/26/17 21:47 Lipase 67 U/L (23-300) 11/26/17 21:47 Urine Color Straw (YELLOW) 11/26/17 21:47 Urine Clarity Clear (Clear) 11/26/17 21:47 Urine pH 7.0 (5.0-8.0) 11/26/17 21:47 Ur Specific [place] 1.015 (1.003-1.030) 11/26/17 21:47 Urine Protein Negative mg/dL (NEGATIVE) 11/26/17 21:47 Urine Glucose (UA) Neg mg/dL (Normal) 11/26/17 21:47 Urine Ketones Trace mg/dL (NEGATIVE) 11/26/17 21:47 Urine Blood Small (NEGATIVE) 11/26/17 21:47 Urine Nitrate Negative (NEGATIVE) 11/26/17 21:47 Urine Bilirubin Negative (NEGATIVE) 11/26/17 21:47 Urine Urobilinogen 0.2-1.0 mg/dL (0.2-1.0) 11/26/17 21:47 Ur Leukocyte Esterase Neg Annie/uL (Negative) 11/26/17 21:47 Urine RBC (Auto) 1 /hpf (0-3) 11/26/17 21:47 Ur Squamous Epith Cells 1 /hpf (0-5) 11/26/17 21:47 - Hospital Course Hospital Course: 27 yr old F with no significant PMHx, who presented to ED reporting diffuse abdominal pain, admitted for acute appendicitis, s/p laparoscopic appendectomy POD #1. Patient seen and examined at [facility] this morning during rounds with attending Dr. Islas. Patient feel well, able to tolerate PO without nausea or vomiting, passing gas after surgery, but has not had a bowel movement yet, pain is well controlled. Surgical team cleared patient to be discharged home today on PO pain control meds, and f/u as outpatient in 1 week. No recommendations for PO antibiotics given. Also on admission was reported a right ovarian complex cyst. CRAP SHOOTER was consulted, and recommended f/u as outpatient with CONFERENCE PRODUCER to repeat TVUS in 4-6 weeks to confirm resolution. Will be discharged on IBuprofen for moderate pain, and Percocet for severe pain. - Date & Time of H&P Date of H&P: 11/27/17 Time of H&P: 02:35 Discharge Exam - Head Exam Head Exam: ATRAUMATIC, NORMAL INSPECTION, NORMOCEPHALIC - Eye Exam Eye Exam: Normal appearance - ENT Exam ENT Exam: Mucous Membranes Moist - Respiratory Exam Respiratory Exam: Clear to PA & Lateral. absent: Decreased Breath Sounds, Prolonged Expiratory Phase, Rhonchi, Wheezes, Respiratory Distress, Stridor - Cardiovascular Exam Cardiovascular Exam: REGULAR RHYTHM, +S1, +S2 - GI/Abdominal Exam GI & Abdominal Exam: Normal Bowel Sounds, Soft. absent: Distended, Guarding, Rigid - Extremities Exam Extremities exam: normal inspection - Back Exam Back exam: absent: CVA tenderness (L), CVA tenderness (R) - Neurological Exam Neurological exam: Alert, Altered - Skin Skin Exam: Normal Color Discharge Plan - Discharge Medications Prescriptions: Ibuprofen [Motrin Tab] 600 mg PO Q8 PRN #20 tab PRN Reason: Pain, Moderate (4-7) oxyCODONE/Acetaminophen [Percocet 5/325 mg Tab] 1 tab PO Q6 PRN #10 tab PRN Reason: Pain, Severe (8-10) - Follow Up Plan Condition: STABLE Disposition: HOME/ ROUTINE Instructions: Appendectomy, Laparoscopic Surgery (DC) Additional Instructions: Follow up with general surgery in 1 week Follow up with Custom Leather Products Maker due complex cyst found in TVUS Follow up with PMD in 2-3 days. Referrals: Francesco Lozoya MD [Staff Provider] - [facility] [Provider Group] <Azalea Islas - Last Filed: 11/28/17 18:06> Provider - Provider Date of Admission: 11/27/17 01:16 Attending physician: Mikie Wright [facility] Course - Lab Results Lab Results: Micro Results 11/26/17 21:47 Urine,Clean Catch Urine Culture - Final MULTIPLE SPECIES. SUGGEST REPEAT SPECIMEN. 11/27/17 02:12 Blood Blood Culture - Preliminary NO GROWTH AFTER 24 HOURS 11/27/17 01:42 Blood Blood Culture - Preliminary NO GROWTH AFTER 24 HOURS Most Recent Lab Values WBC 8.2 K/uL (4.8-10.8) 11/28/17 07:30 RBC 3.70 Mil/uL (3.80-5.20) L 11/28/17 07:30 Hgb 11.4 g/dL (12.0-16.0) L 11/28/17 07:30 Hct 34.4 % (34.0-47.0) 11/28/17 07:30 MCV 92.9 fl (81.0-99.0) 11/28/17 07:30 MCH 30.7 pg (27.0-31.0) 11/28/17 07:30 MCHC 33.1 g/dL (33.0-37.0) 11/28/17 07:30 RDW 13.6 % (11.5-14.5) 11/28/17 07:30 Plt Count 262 K/uL (130-400) 11/28/17 07:30 MPV 8.1 fl (7.2-11.7) 11/26/17 21:47 Neut % (Auto) 81.5 % (50.0-75.0) H 11/26/17 21:47 Lymph % (Auto) 12.3 % (20.0-40.0) L 11/26/17 21:47 [place] % (Auto) 5.5 % (0.0-10.0) 11/26/17 21:47 Eos % (Auto) 0.4 % (0.0-4.0) 11/26/17 21:47 Baso % (Auto) 0.3 % (0.0-2.0) 11/26/17 21:47 Neut # (Auto) 12.3 K/uL (1.8-7.0) H 11/26/17 21:47 Lymph # (Auto) 1.9 K/uL (1.0-4.3) 11/26/17 21:47 [place] # (Auto) 0.8 K/uL (0.0-0.8) 11/26/17 21:47 Eos # (Auto) 0.1 K/uL (0.0-0.7) 11/26/17 21:47 Baso # (Auto) 0.1 K/uL (0.0-0.2) 11/26/17 21:47 PT 11.1 Seconds (9.8-13.1) 11/27/17 01:42 INR 1.0 11/27/17 01:42 APTT 32.1 Seconds (25.6-37.1) 11/27/17 01:42 Sodium 135 mmol/l (132-148) 11/28/17 07:30 Potassium 4.1 MMOL/L (3.6-5.0) 11/28/17 07:30 Chloride 106 mmol/L (98-107) 11/28/17 07:30 Carbon Dioxide 21 mmol/L (22-30) L 11/28/17 07:30 Anion Gap 12 (10-20) 11/28/17 07:30 BUN 4 mg/dl (7-17) L 11/28/17 07:30 Creatinine 0.6 mg/dl (0.7-1.2) L 11/28/17 07:30 Est GFR ( Amer) > 60 11/28/17 07:30 Est GFR (Non-Af Amer) > 60 11/28/17 07:30 Random Glucose 78 mg/dL (65-105) 11/28/17 07:30 Lactic Acid 0.7 MMOL/L (0.7-2.1) 11/27/17 01:42 Calcium 8.8 mg/dL (8.4-10.2) 11/28/17 07:30 Total Bilirubin 0.5 mg/dl (0.2-1.3) 11/26/17 21:47 AST 25 U/L (14-36) 11/26/17 21:47 ALT 21 U/L (9-52) 11/26/17 21:47 Alkaline Phosphatase 64 U/L (38-126) 11/26/17 21:47 Total Protein 7.9 G/DL (6.3-8.2) 11/26/17 21:47 Albumin 4.8 g/dL (3.5-5.0) 11/26/17 21:47 Globulin 3.2 gm/dL (2.2-3.9) 11/26/17 21:47 Albumin/Globulin Ratio 1.5 (1.0-2.1) 11/26/17 21:47 Lipase 67 U/L (23-300) 11/26/17 21:47 Urine Color Straw (YELLOW) 11/26/17 21:47 Urine Clarity Clear (Clear) 11/26/17 21:47 Urine pH 7.0 (5.0-8.0) 11/26/17 21:47 Ur Specific [place] 1.015 (1.003-1.030) 11/26/17 21:47 Urine Protein Negative mg/dL (NEGATIVE) 11/26/17 21:47 Urine Glucose (UA) Neg mg/dL (Normal) 11/26/17 21:47 Urine Ketones Trace mg/dL (NEGATIVE) 11/26/17 21:47 Urine Blood Small (NEGATIVE) 11/26/17 21:47 Urine Nitrate Negative (NEGATIVE) 11/26/17 21:47 Urine Bilirubin Negative (NEGATIVE) 11/26/17 21:47 Urine Urobilinogen 0.2-1.0 mg/dL (0.2-1.0) 11/26/17 21:47 Ur Leukocyte Esterase Neg Annie/uL (Negative) 11/26/17 21:47 Urine RBC (Auto) 1 /hpf (0-3) 11/26/17 21:47 Ur Squamous Epith Cells 1 /hpf (0-5) 11/26/17 21:47 Attending/Attestation - Attestation I have personally seen and examined this patient.: Yes I have fully participated in the care of the patient.: Yes I have reviewed all pertinent clinical information, including history, physical exam and plan: Yes Notes (Text): 11/28/17 18:06 Seen, examined, and discussed with resident. Agree with findings and plan as above.
--- NOTE | 2017-11-28 19:31 | OP ---
Copied To: Francesco Lozoya MD Attending MD: Francesco Lozoya MD PROCEDURE DATE: 11/27/2017 PREOPERATIVE DIAGNOSES: 1. Acute appendicitis. 2. Leukocytosis. 3. Right ovarian cyst. POSTOPERATIVE DIAGNOSES: 1. Acute appendicitis. 2. Pelvic collection. 3. Corpus luteal cyst. PROCEDURES DONE: 1. Laparoscopic appendectomy. 2. Laparoscopic drainage of pelvic collection, hemorrhagic. SURGEON: Francesco Lozoya MD. COGNOS TM1 DEVELOPER: Gavin Kamara, PGY-2 resident. ANESTHESIA: General endotracheal tube anesthesia. ESTIMATED BLOOD LOSS: Around 10 mL. DRAIN: None. PATHOLOGY: Appendix was sent to the Pathology. COMPLICATIONS: None. INTRAOPERATIVE FINDINGS: The patient had acutely inflamed appendix at the tip of the appendix with hemorrhagic pelvic collection with ovarian cyst on the right side and on intraoperative steps, this 27-year-old female was diagnosed with acute appendicitis with right ovarian cyst and the patient underwent ultrasound of the pelvis as well as the RETAIL SALES MANAGER consult and after clearance from the RETAIL SALES MANAGER, the patient was concerning for the laparoscopic appendectomy, possible open, brought to the OR, placed upon operating table. After induction of the anesthesia, the abdomen was prepped and draped in the usual sterile fashion. A supraumbilical transverse incision was made after incising the skin and subcutaneous tissue and the fascia. Ramesh port was placed. Pneumo was created. Another 12 mm port was placed in left lower quadrant. A 5 m port was placed in suprapubic region, grasper and dissector was introduced. Mesoappendix was identified. It was resected with Harmonic scalpel. was resected with a ELIECER and after proper hemostasis, the pelvis was not explored. The patient had right ovarian cyst and the patient also had some hemorrhagic fluid in the pelvis that was suctioned out and after proper hemostasis, the specimen was sent off the table for pathology. All the port was withdrawn from the region, pneumo was deflated and the umbilical port site was closed in two layers. I think she has a , skin with 4-0 Monocryl and dry sterile dressing was applied. The patient tolerated the procedure well. Count of the instrument and gauze was correct. There was no apparent complication. The patient was extubated in the OR and sent to the postanesthesia care unit in stable condition. There is no apparent complication. Francesco Lozoya MD
== END 2017-11-28 12:36 | disposition home or self-care (01) | DRG 342 ==
LOC: H.ER 20:14 → H.ERHOLD 11-27 01:16 → H.MEDSURG1 11-27 02:47
PROVIDERS: ADMIT Internal Medicine; ATTEND Internal Medicine
PROC: 0W9J4ZZ Drainage of Pelvic Cavity, Percutaneous Endoscopic Approach (ICD-10-PCS; 2017-11-27)
PROC: 0DTJ4ZZ Resection of Appendix, Percutaneous Endoscopic Approach (ICD-10-PCS; principal; 2017-11-27 16:00)
DX: K35.80 Unspecified acute appendicitis (principal); R18.8 Other ascites; N83.11 Corpus luteum cyst of right ovary; Z88.2 Allergy status to sulfonamides